=== PATIENT | male | born 1980 | race Caucasian/White ===

== ENCOUNTER → 2021-08-27 | Outpatient (CLI) | payer OTHER ==
[~2021-08-27] MED LIST: NICO2GUM5 PO
--- NOTE | 2021-08-27 12:18 | REP ---
INDICATION: THROMBOSIS, KELY LEG PAIN COMPARISON: None. TECHNIQUE: Real time compression and duplex Doppler interrogation of the bilateral lower extremity deep venous system is performed. Compression ultrasound is performed of the bilateral peroneal and posterior tibial veins. FINDINGS: Bilaterally, the common femoral, superficial femoral and popliteal veins are fully compressible with transducer pressure and demonstrate normal spontaneous and phasic flow, without evidence of deep venous thrombosis. The calf veins are not well visualized bilaterally. IMPRESSION: No evidence of deep venous thrombosis of the bilateral lower extremity femoral popliteal venous system. <Electronically signed by Vasu Rodriguez > 08/27/21 [id number]
== END ==
LOC: M RAD 11:34
PROVIDERS: ATTEND Specialist
DX: I80.201 Phlebitis and thrombophlebitis of unspecified deep vessels of right lower extremity (principal)

== ENCOUNTER → 2021-11-12 | Outpatient (REF) | payer OTHER | LOC: M SMT 17:04 | PROVIDERS: ATTEND Urology | DX: Z30.2 Encounter for sterilization (principal) ==

== ENCOUNTER → 2022-02-06 | Outpatient (REF) | payer OTHER ==
[2022-02-06 13:29] LABS: SEMEN APPEARANCE OPAQUE (OPAQUE); SEMEN VISCOSITY LIQUID (LIQUID); SEMEN VOLUME 1.8 ml (2.0-5.0)
[2022-02-06 13:30] LABS: WBC CONCENTRATION <=1 M/ml (<=1 M/ml)
== END ==
LOC: M SMT 12:57
PROVIDERS: ATTEND Urology
DX: Z30.2 Encounter for sterilization (principal)